=== PATIENT | female | born 1990 | race Two or more races ===

== ENCOUNTER 2022-12-04 09:23 | Emergency (ER) | payer MEDICAID ==
[~2022-12-04] VITALS: Ht 170.2 cm; Wt 72.6 kg
[~2022-12-04 09:23] MED LIST: NITR100C6 PO; PHEN-894 PO
[2022-12-04 09:38] VITALS: BP 125/71; TEMP 98
[2022-12-04] MEDS ORDERED: KETOROLAC TROMETHAMINE INJ 60 MG/2 ML VIAL IM ONE (10:30)
[2022-12-04] MEDS ORDERED: dexaMETHasone SOD PHOSPHATE 10 MG/ML VIAL IM ONE (10:30)
[2022-12-04] MEDS ORDERED: dexaMETHasone SOD PHOSPHATE 10 MG/ML VIAL ONE (10:32)
[2022-12-04] MEDS ORDERED: KETOROLAC TROMETHAMINE 15 MG/ML VIAL ONE (10:32)
[2022-12-04] MEDS ORDERED: IBUP-1955 PO (11:06)
[2022-12-04] MEDS ORDERED: AMOX500C2 PO (11:06)
[2022-12-04 11:57] VITALS: O2SAT 100
== END 2022-12-04 12:00 ==
LOC: ER 09:28
DX: J02.9 Acute pharyngitis, unspecified (principal); F41.9 Anxiety disorder, unspecified; F32.A Depression, unspecified; Z20.822 Contact with and (suspected) exposure to COVID-19
CPT/HCPCS: 99285; 87426; 96372 ×2; 87880; J1100; J1885; C9803; 86403-TC